=== PATIENT | male | born 2000 | race Caucasian/White ===

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

== ENCOUNTER 2025-05-03 16:22 | Outpatient (CLI) | payer BC, SELFPAY ==
[2025-05-03 18:29] LABS: Hematocrit 41.4 % (42.0-52.0); Hemoglobin 14.6 g/dL (14.0-18.0); Immature Granulocyte Percent A 0.2 % (0-0.5); Lymphocytes Absolute Auto 2.74 K/mm3 (0.9-3.2); Mean Corpuscular HGB Conc 35.3 g/dl (32-36); Mean Corpuscular Hemoglobin 30.9 pg (26-34); Mean Corpuscular Volume 87.7 fl (80-100); Nucleated Red Blood Cells Absolute Auto 0.000 K/mm3 (0.0-0.012); Nucleated Red Blood Cells Perc 0.0 % (0.0-0.2); Platelet Count Result 192 k/mm3 (150-375); Red Blood Count 4.72 M/mm3 (4.6-6.20); White Blood Count 5.9 K/mm3 (4.5-10.0)
--- OUTSIDE RECORDS SUMMARY | 2025-05-03 19:29 | XMS_ITS | Clinical Summary ---
Author Organization [facility] Address [address] [place] [address] Care Team Providers Care Trader Name Role Phone HelioSathyaJason alcazar Primary Care Provider Social History Tobacco Use Types Packs/Day Years Used Date Smoking Tobacco: Never Assessed Sex and Gender Information Value Date Recorded Sex Assigned at Not on file Legal Sex Male 12:50 PM CDT Gender Identity Not on file Sexual Orientation Not on file Plan of Treatment Health Maintenance Due Date Last Done Comments Annual Physical 2004 HPV Vaccines (1 - Male 3-dos e series) 2016 Meningococcal B Vaccine (1 o f 2 - Standard) 2017 Hepatitis C 2019 DTaP, Tdap and Td Vaccines ( 1 - Tdap) 2020 Hepatitis B Vaccines (1 of 3 - 19+ 3-dose series) 2020 COVID-19 Vaccine (1 - 2024-2 6 season) 2025 Influenza Adult (#1) 2025 Hepatitis A Vaccines Aged Out No long er eligible based on patient's age to complete this topic Meningococcal Vaccine Aged Out No efraín sandy eligible based on patient's age to complete this topic Pneumococcal Vaccine: Pediat rics (0 to 5 Years) and At-Risk Patients (6 to 49 Years) Aged Out No longer eligible b ased on patient's age to complete this topic RSV Immunizations Under 20 Months Aged Out No longer eligible based on patient's age to complete this topic Insurance [address] [place] [id number] Care Teams Trader Relationship Specialty Start Date End Date Jason Tipton DO PCP - General PEDIATRICS 03/12/19
--- OUTSIDE RECORDS SUMMARY | 2025-05-03 19:29 | XMS_ITS | Clinical Summary ---
Author Organization [facility] [employer] Address [address] [place] [address] Care Team Providers Care Immigration Investigator Name Role Phone Kitty Howell MD Primary Care Provider [phone] Source Comments [facility] [employer],non-owned Affiliates and Associated Physician Practices is amultiple site organization consisting of ambulatory clinics and hospital sitesin [place], [place], [place] and [place]. This disclosure is being madepursuant to the Care Everywhere program and may not contain all information available regarding this patient. Last updated 18.[facility] [employer] Allergies Active Allergy Reactions Criticality Noted Date Comments Lactose Diarrhea 09/14/2016 Medications * Be aware that medications may not be up to date on this document. Alwaysverify current medications with the patient. cetirizine (ZYRTEC ALLERGY) 10 MG tablet Active fluticasone propionate (FLONASE) 50 MCG/ACT nasal spray [place] 1 [place] into each nostril once daily. 08/21/2013 Active montelukast (SINGULAIR) 10 MG tablet Take 1 tablet by mouth once daily 90 tablet 4 01/05/2019 Active predniSONE (DELTASONE) 10 MG tablet 3 tabs po BID x3 days, 2tabs po BIDx3 days, 1tab po BID x 3 days, 1tab daily x 3 days 40 tablet 03/03/2019 Active Active Problems Problem Noted Date Diagnosed Date BMI (body mass index), pedia tric, 85% to less than 95% for age 0611/22/2015 Chronic nonintractable headache 11/22/2015 Seasonal allergic rhinitis 11/23/2013 Immunizations Immunization Administration Dates Next Due DTaP VACCINE IM (6wk-6yrs) 08/30/2006,,2001,09/19,2001 HEP A PEDS 2 DOSE 12/04/2012,08/30/2006 HEP B VACCINE, PED/ADOL 02/19/2002,2001, HIB BOOSTER 11/23/2002, 2,2001,07/21 Human Papilloma Virus Sabas valent Vaccine 05/31/2014,01/29/2014,11/23/2013 MENINGOCOCCAL ACWY (MCV4P) VAC IM 01/05/2019,03/2013 MMR 08/30/2006,2002 PNEUMOCOCCAL CONJ, PEDS 2002,12/08,2001,07/21 POLIO IPV 08/30/2006, 3,2001,07/21 PPD 08/30/2006,2002 TDAP (7yrs+) 12/04/2012 VARICELLA 08/30/2006,08/21/2002 Social History Tobacco Use Types Packs/Day Years Used Date Smoking Tobacco: Never Smokeless Tobacco: Never Alcohol Use Standard Drinks/Week Comments Not Asked 0 (1 standard drink = 0.6 oz pur e alcohol) Sex and Gender Information Value Date Recorded Sex Assigned at Not on file Legal Sex Male 6:02 AM GRAPHICS INTERN Gender Identity Not on file Sexual Orientation Not on file Last Filed Vital Signs Vital Sign Reading Time Taken Comments Blood Pressure 129/73 01/05/2019 10:01 AM CDT Pulse 69 01/05/2019 10:01 AM CDT Temperature 36.3 C (97.4 F) 03/03/2019 4:06 PM CDT Respiratory Rate - - Oxygen Saturation - - Inhaled Oxygen Concentration - - Weight 81.2 kg (179 lb) 03/03/2019 4:06 PM CDT Height 181 cm (5' 11.25) 01/05/2019 10:01 AM CD T Body Mass Index - - Plan of Treatment Health Maintenance Due Date Last Done Comments HIV SCREENING 2016 MENINGOCOCCAL (Group B) VACC INE SHARED DECISION-MAKING (1 of 2 - Standard) 2017 HEPATITIS C SCREENING 05/15/2019 DTAP/TDAP/TD VACCINES (7 - T d or Tdap) 12/04/2022 12/04/2012, 08/30/2006, 11/23/2002, Additional history exists DEPRESSION SCREENING 05/27/2024 COVID-19 VACCINE (1 - 2024-2 6 season) 2025 INFLUENZA VACCINE (#1) 2025 ZOSTER VACCINE (1 of 2) 2051 HEPATITIS B VACCINE Completed 02/19/2002, 2001, 2001 PNEUMOCOCCAL VACCINE Completed 2002, 2001, 2001, Additional history exists HIB VACCINE Completed 11/23/2002, 11/24, 2001, Additional history exists HPV VACCINE Completed 05/31/2014, 09/2013, 11/23/2013 MENINGOCOCCAL GROUPS A/C/Y/W VACCINE Completed 01/05/2019, 12/04/2012 Goals Goal Patient Goal Type Associated Problems Recent Progress Patient-Stated? Author Reduce calorie intake Diet On track( 019 4:07 PM CDT) No Kitty Howell MD Note: Caring for Your Overweight Child Eating a healthy diet: Think of the food your child eats in terms of GO, SLOW, and WHOA foods. They can enjoy GO foods almost any time they like. Limit SLOW foods to certain occasions, no more than a few times per week. And enjoy WHOA foods only on special occasions, and then eat only a small portion. GO foods include low-fat, low-calorie foods that are also low in added sugar. They tend to be rich in nutrients, such as vitamins, minerals, and other healthy substances. Fresh fruits and vegetables are great examples of GO foods. That said, fried vegetables and fruits canned in syrup, despite their vital ingredients, fall into the category of WHOA foods. Be sure to stock up on GO foods so that you can offer a variety of foods to keep things interesting. SLOW foods tend to be higher in fat and added sugar than GO foods are. Examples include fruit juices, baked goods made with white, refined flour; and poultry cooked with the skin still on. WHOA foods are the highest in fat and added sugar. Foods prepared with heavy creams and butter, fried foods, and fatty meats are examples of foods your child should only eat once in a while. One way to identify unhealthy eating triggers is for your child to keep a journal, in which they writes down the food they ate, where they ate it, the time of day and - extremely important - the reasons for eating. Did they devour two slices of meatball pizza after school because they were truly hungry or because they simply wanted to hang out at the pizza parlor with their friends? If they give the latter reason, perhaps next time the group can split a pizza and he could consciously choose to n urse a single slice, even if everyone else grabs two. Where can I go for more information? [place] [employer] ( ) www.aap.org, HealthyChildren.org www.healthychildren.org Website and free downloadable anne-marie for smartphones: http://www.Buzzwire/ Use safety retraint in car Lifestyle On track( 019 4:06 PM CDT) No Shi Davalos RN Insurance [employer] * Guarantor: VIKAS REY Account Type Relation to Patient Date of Phone Billing Address Personal/Family [address] [place] [id number] Care Teams Immigration Investigator Relationship Specialty Start Date End Date Kitty Howell MD PCP - General 05/24/09
== END 2025-05-03 16:23 | disposition home or self-care (01) ==
LOC: ANHLAB 16:23
PROVIDERS: PCP Internal Medicine; Visit Provider Surgery
DX: K60.2 Anal fissure, unspecified (principal)
CPT/HCPCS: 36415; 85025

== ENCOUNTER 2025-05-05 00:48 | Day surgery (SDC) | payer BC, SELFPAY ==
--- OUTSIDE RECORDS SUMMARY | 2025-01-06 11:30 | XMS_ITS ---
Author Organization [facility] [employer] [place] ([address]) Address [address] [facility] [address] [place] [address] Care Team Providers Care Heavy Equipment Operator Name Role Phone Jacob Walker Primary Care Provider Shawnee Garcia Unavailable [phone] REASON FOR VISIT SCIT - Traditional Schedule Allergy immunotherapy Encounters Encounter Location Date Provider Diagnosis [facility] [address] [place] [address] 01/06/2025 Shawnee Alexander Allergic rhinitis du e to pollen J30.1 ; Allergic rhinitis due to animal (cat) (dog) hair and dander J30.81 ; Other allergic rhinitis J30.89 and Other chronic allergic conjunctivitis H10.45 Assessments Encounter Date Diagnosis (ICD Code) Assessment Notes Treatment Notes Treatment Clinical Notes Section Notes 01/06/2025 Allergic rhinitis due to pollen (ICD-10 - J30.1) 01/06/2025 Allergic rhinitis due to animal (cat) (dog) hair and dander (ICD-10 - J30.81) 01/06/2025 Other allergic rhinitis (ICD-10 - J30.89) 01/06/2025 Other chronic allergic conjunctivitis (ICD-10 - H10.45) Plan Of Treatment Next Appt Details Follow Up: 1 Week, Reason: Provider Name:Shawnee jaramillo, 05/25/2025 04:00:00 PM, [address], [place], [address], Progress Notes * Vikas REY DDOB:2000 ([age] yo M)Acc No.[id number]:01/06/2025 SCIT-Aeroallergen Patient: Vikas IRIZARRY Provider: Ac Alexander MD :2000 A ge:24 Y S ex:Male Date:01/06/2025 Address:[address] [place], [place] [id number] Pcp:Jacob Walker Subjective: * Chief Complaints: * 1 . SCIT - Traditional Schedule Allergy immunotherapy . * HPI: * Introduction: The patient is here for scheduled immunotherapy. Please see the attached specialty form regarding the specifics of the administration of these vaccines. As per our protocol, they must undergo a screening health questionnaire (medication changes, reaction(s) to last immunotherapy dose(s), current health status, ACT (if appropriate), self-injectable epinephrine on patient(?) and peak flow (if appropriate)). Also, the patient must wait in our office for 30 minutes after receiving the vaccine(s). Furthermore, every patient must have an epinephrine pen (self-injectable) with them at the time of administration--and carry if for the following 1.5 hours after they leave our office. The patient must also have taken their antihistamine the day of the injection, preferably 2 hours prior. The consent form for SCIT (subcutaneous immunotherapy) is on file. * Medical History: Objective: * Vitals: Assessment: * Assessment: 1. A llergic rhinitis due to pollen - J30.1 (Primary) 2 . A llergic rhinitis due to animal (cat) (dog) hair and dander - J30.81 3 . O ther allergic rhinitis - J30.89 4 . O ther chronic allergic conjunctivitis - H10.45 Plan: * Treatment: * Procedure Codes: 9 5117 IMMUNOTHERAPY INJECTIONS * Preventive Medicine: Counseling: E xercise A void heavy lifting on days of allergy immunotherapy. M edication instruction: I njectable epinephrine education and instruction w/ discussion of signs and symptoms of anaphylaxis and reasons to seek urgent or emergent care, Watch for side effects of prescribed medications. E ducation: A ble to return demonstration of self-injectable epinephrine. * Follow Up: 1 Week * Billing Information: * Visit Code: * Procedure Codes: 65265 IMMUNOTHERAPY INJECTIONS. * Electronic signature of Cherelle Alexander MD on 05/05/2025 at 12:52 AM HOIST CYLINDER LOADER Sign off status: Pending * Provider: Ac Alexander MD Date: 0 01/06/2025 Generated for Emi andi/Herrera/Alinaitting on: 1 07/06/2024 12:52 AM HOIST CYLINDER LOADER History and Physical Notes * HPI (History of Present Illness) Category Sub-Category Detail Notes Category Not es *Introduction The patient is here for scheduled immunotherapy. Please see the attached specialty form regarding the specifics of the administration of these vaccines. As per our protocol, they must undergo a screening health questionnaire (medication changes, reaction(s) to last immunotherapy dose(s), current health status, ACT (if appropriate), self-injectable epinephrine on patient(?) and peak flow (if appropriate)). Also, the patient must wait in our office for 30 minutes after receiving the vaccine(s). Furthermore, every patient must have an epinephrine pen (self-injectable) with them at the time of administration--and carry if for the following 1.5 hours after they leave our office. The patient must also have taken their antihistamine the day of the injection, preferably 2 hours prior. The consent form for SCIT (subcutaneous immunotherapy) is on file.
--- NOTE | 2025-04-30 14:20 | PC.NURSE ---
[facility] has started construction of its new state of the art ER which will open Spring 2026. With this, we anticipate parking may be a challenge for some our surgical patients and families. Parking spaces are limited but are available for all Surgical, obstetrics, and ER patients sharing this lot. If you arrive and find you are having a hard time finding a parking space, please note that we understand the challenges, please drive around the hospital and park near Hospital Entrance 1. When you enter this entrance, you can ask a volunteer to direct or take you back to the surgical waiting area to check in. We appreciate everyone?s understanding of these expected challenges while we build for your future. Report to the Outpatient Waiting Room, entrance under the green pavilion located off [address], at time ___929__ on date __05/04/25_. Planned Procedure Time: _1130__.? Time changes happen often and if your time is changed the preop area will call you the afternoon before. - You and your visitor will be asked to self-screen and do not enter if you have any COVID symptoms. Please call surgeon if you need to reschedule. - A mask is optional within the hospital at this time. Patients may have clear liquids (water, carbonated beverages, clear teas, apple juice) until 3 hours prior to surgery with a maximum of 20 ounces. - No food from midnight until time of surgery and no smoking, or chewing tobacco (or any form of nicotine). No chewing gum, candy or mints. Take only the following medications with a SIP of water on the morning of surgery: NONE DO NOT STOP ANY OF YOUR OTHER PRESCRIPTION MEDICATIONS PRIOR TO SURGERY EXCEPT THE FOLLOWING Hold all vitamins and supplements for 3 days per anesthesiologist. Medications to discontinue per physician Date to take last dose Please no make-up, nail yakut, hairspray, perfume, deodorant, or body powder the day of surgery.? No jewelry (including any body piercings) or valuables the day of surgery, leave them at home.? Please take a shower or bath the night before, or the morning of, surgery with HIBICLENS antibacterial soap.? Wear comfortable, loose fitting clothing.? Children are encouraged to wear pajamas. - Jewelry must be removed prior to entering the operating room.? Rings and piercings that are not removed may be cut off. - The hospital will not accept responsibility for valuables.? - Please leave all valuables, including medications, at home the day of surgery. If you are going home after surgery, a licensed trash truck driver must drive you home.? - NO public transportation without another adult if you receive anesthesia. - We recommend that an adult stay with you for 24 hours following discharge. - We also recommend that you do not drive, make important decision, drink alcoholic beverages, or take any drugs that were not prescribed by your health care provider for at least 24 hours after your discharge time. For Pediatric surgeries, we recommend two adults accompany the child home. Follow any additional instructions given to you from your surgeon. Telephone instructions given to PATIENT_and asked if any additional questions and then verbalized understanding. Patient advised to call surgeon office or pre surgery nurse liaison [phone] if any additional questions.
[2025-04-30 15:11] VITALS: BMI 21.2
[2025-05-05] VITALS (7 sets, daily range): BP systolic 100–124; BP diastolic 55–75; PULSE 56–84; RESP 14–20; TEMP 36.3–36.6; O2SAT 100
--- OUTSIDE RECORDS SUMMARY | 2025-05-05 00:52 | XMS_ITS | Clinical Summary ---
Author Organization [facility] [employer] Address [address] [place] [address] Care Team Providers Care Redrawer Name Role Phone Kitty Howell MD Primary Care Provider [phone] Source Comments [facility] [employer],non-owned Affiliates and Associated Physician Practices is amultiple site organization consisting of ambulatory clinics and hospital sitesin [place], [place], [place] and [place]. This disclosure is being madepursuant to the Care Everywhere program and may not contain all information available regarding this patient. Last updated 18.[facility] [employer] Allergies Active Allergy Reactions Criticality Noted Date Comments Lactose Diarrhea 09/14/2016 Medications * Be aware that medications may not be up to date on this document. Alwaysverify current medications with the patient. cetirizine (ZYRTEC ALLERGY) 10 MG tablet Active fluticasone propionate (FLONASE) 50 MCG/ACT nasal spray [place] 1 [place] into each nostril once daily. 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 [place] [employer] ( ) www.aap.org, HealthyChildren.org www.healthychildren.org Website and free downloadable anne-marie for smartphones: http://www.Michael Bieker/ Use safety retraint in car Lifestyle On track( 019 4:06 PM CDT) No Shi Davalos RN Insurance [employer] * Guarantor: VIKAS REY Account Type Relation to Patient Date of Phone Billing Address Personal/Family [address] [place] [id number] Care Teams Redrawer Relationship Specialty Start Date End Date Kitty Howell MD PCP - General 05/24/09
--- OUTSIDE RECORDS SUMMARY | 2025-05-05 00:52 | XMS_ITS | Clinical Summary ---
Author Organization [facility] Address [address] [place] [address] Care Team Providers Care Valuer Name Role Phone HelioSathyaJason alcazar Primary Care [...] patient's age to complete this topic Insurance [place] [address] [address] Care Teams Valuer Relationship Specialty Start Date End Date Jason Tipton DO PCP - General PEDIATRICS 03/12/19
--- OUTSIDE RECORDS SUMMARY | 2025-05-05 00:52 | XMS_ITS | Patient Health Record ---
Author Organization Formerly [facility] [employer] [facility] [place] ([address]) Address [address] [place] [address] Care Team Providers Care Horticulture Worker Name Role Phone Jacob Walker Primary Care Provider UnavailShawnee Major Unavailable [phone] Paras Mobley Unavailable [phone] Allergies No Known Allergies Reason For Referral No Information Medications Medication SIG (Take, Route, Frequency, Duration) Notes Start Date End Date Status EPINEPHrine 0.3 MG/0.3ML as directed Injection 1; Duration: 1 days 06/03/2024 Active EPINEPHRINE 0.3 mg as directed intramuscularly once; Duration: 1 day Active Medrol 4 MG as directed Orally daily; Duration: 6 days 06/03/2024 Active CETIRIZINE HYDROCHLORIDE 10 mg 1 tab(s) orally once a day; Duration: 90 days Active TRIAMCINOLONE ACETONIDE NASAL 55 mcg/inh 2 spray in each nostril once a day; Duration: 30 days Active NASACORT ALLERGY 24HR 55 mcg/inh 1 spray(s) in each nostril once a day Active EPINEPHrine 0.3 MG DIRECTED INTRAMUSCULARLY ONCE; Duration: 1 DAY *Please review and pick correct strength-formulat ion from Medispan options. If intended option is not shown, discontinue and re-order from Quick Search* Active Cetirizine HCl 10 MG 1 tab(s) orally onc e a day; Duration: 90 days Active Triamcinolone Acetonide 55 MCG/ACT 2 spray in each nostril once a day; Duration: 30 days Active Nasacort Allergy 24HR 55 MCG/ACT 1 spray(s) in each nostril once a day Active SIT (TRADITIONAL) VARIABLE PER SCHEDULE SC PER SCHEDULE; Duration: TO BE DETERMINED *Please review for potential replacement for e-prescription and drug interaction check* Active EPINEPHrine 0.15 MG/0.3ML as directed Injection 60; Duration: 60 days 05/28/2024 Active Social History Tobacco Use: Social History Observation Description Date Details (start date - stop date) Never Smoker NA - NA Smoking Smart Form: Question Answer Notes Are you a: former smoker How long it has been since you last smoked? 3-6 months Tobacco Control (Standard) Question Answer Notes Tobacco use: Nonsmoker Problems Problem Type SNOMED Code ICD Code Onset Dates Problem Status W/U Status Risk Notes Problem Chronic allergic conjunctivitis (83096545) Other chronic allergic conjunctivitis (H10.45) Active confirmed Problem Allergic rhinitis caused by pollen (disorder) (59031715) Allergic rhinitis due to pollen (J30.1) Active confirmed Problem Allergic rhinitis caused by animal hair and dander (750707801730315) Allergic rhinitis due to animal (cat) (dog) hair and dander (J30.81) Active confirmed Problem Allergic rhinitis (56590352) Other allergic rhinitis (J30.89) Active confirmed Problem Allergic rhinitis caused by pollen (disorder) (19449767) Allergic rhinitis due to pollen (J30.1) Active confirmed Problem Allergic rhinitis caused by animal hair and dander (359418595736988) Allergic rhinitis due to animal (cat) (dog) hair and dander (J30.81) Active confirmed Problem Allergic rhinitis (62260490) Other allergic rhinitis (J30.89) Active confirmed Problem Chronic allergic conjunctivitis (69934418) Other chronic allergic conjunctivitis (H10.45) Active confirmed Encounters Encounter Location Date Provider Diagnosis [facility] [address] [facility] [employer] [address] [address] 02/08/2025 Shawnee Alexander Allergic rhinitis du e to pollen J30.1 ; Allergic rhinitis due to animal (cat) (dog) hair and dander J30.81 ; Other allergic rhinitis J30.89 and Other chronic allergic conjunctivitis H10.45 [facility] [address] [employer] [address] [address] 01/07/2025 Shawnee Alexander Allergic rhinitis du e to pollen J30.1 ; Allergic rhinitis due to animal (cat) (dog) hair and dander J30.81 ; Other allergic rhinitis J30.89 and Other chronic allergic conjunctivitis H10.45 [facility] [address] [place], [place] [address] [address] [place] [phone] 12/09/2024 Shawnee Alexander Allergic rhinitis du e to pollen J30.1 ; Allergic rhinitis due to animal (cat) (dog) hair and dander J30.81 ; Other allergic rhinitis J30.89 and Other chronic allergic conjunctivitis H10.45 [facility] [address] [place], [place] [address] [address] [address] 11/11/2024 Shawnee Alexander Allergic rhinitis du e to pollen J30.1 ; Allergic rhinitis due to animal (cat) (dog) hair and dander J30.81 ; Other allergic rhinitis J30.89 and Other chronic allergic conjunctivitis H10.45 [facility] [address] [place], [place] [address] [address] [address] 10/14/2024 Shawnee Alexander Allergic rhinitis du e to pollen J30.1 ; Allergic rhinitis due to animal (cat) (dog) hair and dander J30.81 ; Other allergic rhinitis J30.89 and Other chronic allergic conjunctivitis H10.45 [facility] [address] [place] [address] [employer] [address] [place] [phone] 09/17/2024 Paras Mobley Allergic rhinitis du e to pollen J30.1 ; Allergic rhinitis due to animal (cat) (dog) hair and dander J30.81 ; Other allergic rhinitis J30.89 and Other chronic allergic conjunctivitis H10.45 [facility] [address] [place], [place] [address] [address] [place] [phone] 08/20/2024 Shawnee Alexander Allergic rhinitis du e to pollen J30.1 ; Allergic rhinitis due to animal (cat) (dog) hair and dander J30.81 ; Other allergic rhinitis J30.89 and Other chronic allergic conjunctivitis H10.45 [facility] [address] [place], [place] [address] [address] [place] [phone] 08/13/2024 Shawnee Alexander Allergic rhinitis du e to pollen J30.1 ; Allergic rhinitis due to animal (cat) (dog) hair and dander J30.81 ; Other allergic rhinitis J30.89 and Other chronic allergic conjunctivitis H10.45 [facility] [address] [place], [place] [address] [address] [place] [phone] 08/04/2024 Shawnee Alexander [facility] [address] [place] [address] [employer] [address] [place] [phone] 06/23/2024 Shawnee Alexander Allergic rhinitis du e to pollen J30.1 ; Allergic rhinitis due to animal (cat) (dog) hair and dander J30.81 ; Other allergic rhinitis J30.89 and Other chronic allergic conjunctivitis H10.45 [facility] [address] [place] [address] [employer] [address] [address] 05/28/2024 Shawnee Alexander Allergic rhinitis du e to pollen J30.1 ; Allergic rhinitis due to animal (cat) (dog) hair and dander J30.81 ; Other allergic rhinitis J30.89 and Other chronic allergic conjunctivitis H10.45 [facility] [address] [place], [place] [address] [address] [address] 04/27/2025 Shawnee Alexander Allergic rhinitis du e to pollen J30.1 ; Allergic rhinitis due to animal (cat) (dog) hair and dander J30.81 ; Other allergic rhinitis J30.89 and Other chronic allergic conjunctivitis H10.45 [facility] [address] [place] [address] [employer] [address] [address] 04/07/2025 Shawnee Alexander Allergic rhinitis du e to pollen J30.1 ; Allergic rhinitis due to animal (cat) (dog) hair and dander J30.81 ; Other allergic rhinitis J30.89 and Other chronic allergic conjunctivitis H10.45 [facility] [address] [place], [place] [address] [address] [place] [phone] 03/10/2025 Shawnee Alexander Allergic rhinitis du e to pollen J30.1 ; Allergic rhinitis due to animal (cat) (dog) hair and dander J30.81 ; Other allergic rhinitis J30.89 and Other chronic allergic conjunctivitis H10.45 [facility] [address] [address] 08/03/2024 Shawnee Alexander [facility] [address] [place] [phone] 06/02/2024 Shawneehamzah Alexander [address] [address] 05/28/2024 Shawneehamzah Alexander Allergic rhinitis du e to pollen J30.1 Assessments Encounter Date Diagnosis (ICD Code) Assessment Notes Treatment Notes Treatment Clinical Notes Section Notes 04/07/2025 Allergic rhinitis due to pollen (ICD-10 - J30.1) 03/10/2025 Allergic rhinitis due to pollen (ICD-10 - J30.1) 02/08/2025 Allergic rhinitis due to pollen (ICD-10 - J30.1) 01/07/2025 Allergic rhinitis due to pollen (ICD-10 - J30.1) 12/09/2024 Allergic rhinitis due to pollen (ICD-10 - J30.1) 11/11/2024 Allergic rhinitis due to pollen (ICD-10 - J30.1) 10/14/2024 Allergic rhinitis due to pollen (ICD-10 - J30.1) 09/17/2024 Allergic rhinitis due to pollen (ICD-10 - J30.1) 08/13/2024 Allergic rhinitis due to pollen (ICD-10 - J30.1) 06/23/2024 Allergic rhinitis due to pollen (ICD-10 - J30.1) 05/28/2024 Allergic rhinitis due to pollen (ICD-10 - J30.1) 04/27/2025 Allergic rhinitis due to pollen (ICD-10 - J30.1) 08/20/2024 Allergic rhinitis due to pollen (ICD-10 - J30.1) 05/28/2024 Allergic rhinitis due to pollen (ICD-10 - J30.1) 08/20/2024 Allergic rhinitis due to animal (cat) (dog) hair and dander (ICD-10 - J30.81) 04/27/2025 Allergic rhinitis due to animal (cat) (dog) hair and dander (ICD-10 - J30.81) 05/28/2024 Allergic rhinitis due to animal (cat) (dog) hair and dander (ICD-10 - J30.81) 06/23/2024 Allergic rhinitis due to animal (cat) (dog) hair and dander (ICD-10 - J30.81) 08/13/2024 Allergic rhinitis due to animal (cat) (dog) hair and dander (ICD-10 - J30.81) 09/17/2024 Allergic rhinitis due to animal (cat) (dog) hair and dander (ICD-10 - J30.81) 10/14/2024 Allergic rhinitis due to animal (cat) (dog) hair and dander (ICD-10 - J30.81) 11/11/2024 Allergic rhinitis due to animal (cat) (dog) hair and dander (ICD-10 - J30.81) 12/09/2024 Allergic rhinitis due to animal (cat) (dog) hair and dander (ICD-10 - J30.81) 01/07/2025 Allergic rhinitis due to animal (cat) (dog) hair and dander (ICD-10 - J30.81) 02/08/2025 Allergic rhinitis due to animal (cat) (dog) hair and dander (ICD-10 - J30.81) 03/10/2025 Allergic rhinitis due to animal (cat) (dog) hair and dander (ICD-10 - J30.81) 04/07/2025 Allergic rhinitis due to animal (cat) (dog) hair and dander (ICD-10 - J30.81) 04/07/2025 Other allergic rhinitis (ICD-10 - J30.89) 03/10/2025 Other allergic rhinitis (ICD-10 - J30.89) 02/08/2025 Other allergic rhinitis (ICD-10 - J30.89) 01/07/2025 Other allergic rhinitis (ICD-10 - J30.89) 12/09/2024 Other allergic rhinitis (ICD-10 - J30.89) 11/11/2024 Other allergic rhinitis (ICD-10 - J30.89) 10/14/2024 Other allergic rhinitis (ICD-10 - J30.89) 09/17/2024 Other allergic rhinitis (ICD-10 - J30.89) 08/13/2024 Other allergic rhinitis (ICD-10 - J30.89) 06/23/2024 Other allergic rhinitis (ICD-10 - J30.89) 05/28/2024 Other allergic rhinitis (ICD-10 - J30.89) 04/27/2025 Other allergic rhinitis (ICD-10 - J30.89) 08/20/2024 Other allergic rhinitis (ICD-10 - J30.89) 05/28/2024 Other chronic allergic conjunctivitis (ICD-10 - H10.45) 08/20/2024 Other chronic allergic conjunctivitis (ICD-10 - H10.45) 04/27/2025 Other chronic allergic conjunctivitis (ICD-10 - H10.45) 04/07/2025 Other chronic allergic conjunctivitis (ICD-10 - H10.45) 06/23/2024 Other chronic allergic conjunctivitis (ICD-10 - H10.45) 08/13/2024 Other chronic allergic conjunctivitis (ICD-10 - H10.45) 09/17/2024 Other chronic allergic conjunctivitis (ICD-10 - H10.45) 10/14/2024 Other chronic allergic conjunctivitis (ICD-10 - H10.45) 11/11/2024 Other chronic allergic conjunctivitis (ICD-10 - H10.45) 12/09/2024 Other chronic allergic conjunctivitis (ICD-10 - H10.45) 01/07/2025 Other chronic allergic conjunctivitis (ICD-10 - H10.45) 02/08/2025 Other chronic allergic conjunctivitis (ICD-10 - H10.45) 03/10/2025 Other chronic allergic conjunctivitis (ICD-10 - H10.45) Plan Of Treatment Next Appt Details Provider Name:Shawnee jaramillo, 05/25/2025 04:00:00 PM, [address] [facility], [address], [place], [address], Insurance Providers Payer Name Payer Address Payer Phone Subscriber Number Group Number Insured Name Patient Relationship to Insured Coverage Start Date Coverage End Date [facility] [address] [place] [address] [phone] [id number] willi Piedra Child - Insured has Financial Responsibility 2 Medical (General) History Medical History History ICD Code Allergic rhinitis, unspecified J30.9 Surgical History Surgery Date(Month/Year) wisdom teeth removal 04/12/2022 ear tubes 2003
--- NOTE | 2025-05-05 10:40 | WPDHPUPDATE1 ---
History and Physical Update Update Date/Time: 05/05/25 10:40 History and Physical has been reviewed, including an updated exam of the patient. There are NO changes in the patient's condition. Risks, benefits, and alternatives have been discussed and questions answered. Patient agrees to proceed with procedure.
[2025-05-05] MEDS: KETOROLAC 15 MG/ML VIAL (*BKC) IV PUSH (11:00)
[2025-05-05] MEDS: ACETAMINOPHEN 500 MG TABLET 1000 MG PO (11:00)
[2025-05-05] MEDS: LACTATED RINGERS 1,000 ML 30 ML IV CONT (11:00)
--- NOTE | 2025-05-05 12:11 | P.PNAN_ITS ---
Anes - Initial Pre Proc Eval Procedure: Operation Date: 05/05/25 12:30 Proposed Procedures p Rectal Examination Under Anesthesia, Lateral Anal Sphincterotomy - Benedict Mcmullen MD Date/Time: 05/05/25 12:11 Surgeon: Benedict Mcmullen MD Pre Op Diagnosis: Anal Fissure Patient Data Age: 24 Gender: M Height: 1.88 m Weight: 73.3 kg Last Vital Signs Temp 36.6 C 05/05/25 11:00 Pulse 56 L 05/05/25 11:00 Resp 16 05/05/25 11:00 BP 118/55 L 05/05/25 11:00 Pulse Ox 100 05/05/25 11:00 O2 Del Method Room Air 05/05/25 11:00 Allergies Allergy/AdvReac Type Severity Reaction Status Date / Time mold Allergy Intermediate runny nose Verified 05/05/25 11:12 Home Medications ?Medication ?Instructions ?Recorded ?Confirmed ?Type cetirizine 5 mg tablet (Zyrtec) 5 mg PO DAILY PRN yazmin rgy symptoms 04/15/25 04/30/25 History Patient hx anesthesia problems: none Family hx anesthesia problems: none Results Review: All pre-operative results and documents have been reviewed as part of the pre- operative evaluation. [facility] Past Medical History Medical History (Updated 04/15/25 @ 09:10 by Meaghan Fink) Anal fissure Hx of seasonal allergies Surgical History Surgical History (Updated 04/15/25 @ 08:44 by Araceli Virgen MA) History of wisdom tooth extraction 2020 Family History Family History Grandparent Heart problem Hypertension Father Hypertension Social History Social History (Updated 04/15/25 @ 08:46 by Araceli Virgen MA) Smoking status: Never smoker Alcohol intake: former Alcohol use details: LAST USE 11 MONTHS Substance use: never Substance use type: does not use Living arrangements: with family Occupation/Education: occupation Additional occupation/education comments: [employer] Gender identity (if verbalized by the patient): Male Anes - Eval Final PreProcedure Day of Procedure 05/05/25 12:11 Patient weight: normal Heart: regular rate and rhythm Lungs: clear to auscultation Airway: Mallampati scale class II Neurological: alert and oriented Last oral intake: >/= 8 hours ASA classification: I Emergent: no Anesthetic plan: proceed Anesthesia type and monitoring: general ETT and standard monitoring Results Review: All pre-operative results and documents have been reviewed as part of the pre- operative evaluation. Informed Consent: The patient's anesthetic plan and its attendant risks and benefits were discussed with the patient/family/POA. Questions were solicited and answers provided to the satisfaction of the patient/family/POA.
[2025-05-05] MEDS: ceFAZolin 2 GM in SODIUM CHLORIDE 0.9% IV 50 ML 100 ML IVPB (12:21)
[2025-05-05] MEDS: BUPIVACAINE/EPINEPHRINE 0.5% 50 ML VIAL 40 ML INFILTRATE (12:41)
--- NOTE | 2025-05-05 12:53 | W.PM.PROC2 ---
Procedure Note - Detailed Date of Procedure 05/05/25 Pre-op Diagnosis Anal Fissure Post-op Diagnosis Same Procedure Performed Left lateral internal sphincterotomy Surgeon Benedict Mcmullen MD Hand Bulldozer Mia Bravo [facility] Anesthesia General and Local Indications Patient has been having sharp rectal pain with bowel movements and some streaking of blood on the toilet paper and stool for about 6 months. He was seen in the office and had severe tenderness and increased rectal sphincter tone but evidence of an anterior midline anal fissure. He is a competitive cyclist. He was started on Metamucil and mineral oil twice a day. He is continuing to have pain with bowel movements and is taken to surgery now for evaluation and treatment. Findings Very superficial anterior midline anal ulcer, looked to be healing. Increase rectal sphincter tone Description of Procedure Patient was taken to surgery and induced into general anesthesia. He was then turned and placed in prone charla-knife position. The buttocks were taped apart. Prep and drape was carried out. Digital exam was performed. Then a small Hill-Gómez anoscope was used and a superficial ulcer in the anterior midline was noted consistent with the office findings. A small incision was made over the lower 3rd of the internal sphincter muscle in the left lateral position. The internal sphincter was then gently dissected and elevated over a clamp. The sphincter was divided with the cautery. There was no bleeding. I infiltrated local into the wound. I held pressure until hemostasis was good. We then dressed the rectum with Xeroform gauze, fluffs, and Medipore tape. Patient was then returned to a supine position. He was awakened and extubated. He was taken to recovery in good condition. Sponge and needle counts were correct x2. Estimated Blood Loss -5 Drains No Packing No Pathology None sent Complications None Condition Stable Disposition PACU [facility] Billing Surgery - Charge Forward: Surgery Billing (Lateral internal sphincterotomy)
== END 2025-05-05 14:16 | disposition home or self-care (01) ==
PROVIDERS: PCP Internal Medicine; Visit Provider Surgery
PROC: (CPT 46080; principal; 2025-05-05 12:30)
DX: K60.2 Anal fissure, unspecified (principal)
CPT/HCPCS: 46080; J0690; A9270; J1100; J1885; J2250; J2405; J2704; J3010; J7120